=== PATIENT | male | born 1960 | race Caucasian/White ===

== ENCOUNTER 2017-02-11 15:59 | Inpatient (IN) ==
[2017-02-11] MEDS ORDERED: Thiamine (B-1) 100 MG in D5% in Water 50 ML IVPB ONE (16:03)
[2017-02-11] MEDS ORDERED: Folic Acid 1 MG in D5% in Water 50 ML IVPB ONE (16:03)
[2017-02-11] MEDS ORDERED: 0.9 % Sodium Chloride 1,000 ML IVC ONE (16:03)
[2017-02-11] MEDS ORDERED: Vancomycin 1,000 MG in D5% in Water 250 ML IVPB ONE (16:30)
[2017-02-11] MEDS ORDERED: Piperacillin/Tazobactam 4.5 GM in D5% in Water (Mini-Bag+) 100 ML IVPB ONE (16:30)
--- NOTE | 2017-02-11 16:45 | Emergency Department Note ---
Disposition Clinical Impression: Seizure in response to acute event, Hypocalcemia, Hyponatremia, Elevated LFTs, History of hepatitis C, Lactic acidemia Altered mental status, unspecified Qualifiers: Altered mental status type: somnolence Qualified Code(s): R40.0 - Somnolence Sepsis Qualifiers: Sepsis type: sepsis due to unspecified organism Qualified Code(s): A41.9 - Sepsis, unspecified organism Disposition: Admitted As Inpatient Condition: Fair Time of Disposition: 18:30 General Adult HPI - General Chief complaint: ED Seizure Stated complaint: psych, withdrawal, seizure Time Seen by Provider: 02/11/17 16:03 Limitations: no limitations Nursing Notes Reviewed: Yes Vital Signs Reviewed: Yes - History of Present Illness HPI Narrative: Patient is a 56-year-old male brought in by EMS from the [place] secondary to patient being combative and started hitting against head against the wall and then went into a seizure. The patient was given 1 mg Ativan and shipped to [facility]. EMS states vital signs were's normal. EMS states that since Ativan patient's not been combative. And has not had any recurrence of seizure activity. Pain Scale: 0 - Related Data Home Medications Medication Instructions Recorded Confirmed Aspirin 81 mg PO DAILY 02/11/17 02/11/17 Diltiazem HCl [Diltiazem ER] 180 mg PO DAILY 02/11/17 02/11/17 Ergocalciferol (VITAMIN D2) 50,000 unit PO QWEEK 02/11/17 02/11/17 [Vitamin D2] Folic Acid 1 mg PO DAILY 02/11/17 02/11/17 Multivitamin [Multi-Day Vitamins] 1 each PO DAILY 02/11/17 02/11/17 Pyridoxine (B-6) [Vitamin B-6] 50 mg PO DAILY 02/11/17 02/11/17 Quetiapine Fumarate [SEROquel] 150 mg PO HS 02/11/17 02/11/17 Thiamine (B-1) [Vitamin B-1] 100 mg PO DAILY 02/11/17 02/11/17 Allergies Allergy/AdvReac Type Severity Reaction Status Date / Time No Known Allergies Allergy Verified 02/11/17 16:12 Review of Systems: As Per HPI Limitations: ROS unobtainable due to patients medical condition Past Medical History - Past Medical History Attestation: Yes The following information was validated with the patient. Source: patient Medical history: Reports: atrial fibrillation, COPD, other - Social History Smoking Status: Current every day smoker Alcohol use: Reports: heavy, recent Physical Exam Vital Signs Temperature 97.6 F 02/11/17 16:00 Pulse Rate 109 02/11/17 16:00 Respiratory Rate 18 02/11/17 16:00 Blood Pressure 105/75 02/11/17 16:00 O2 Sat by Pulse Oximetry 98 02/11/17 16:00 Temperature 97.6 F 02/11/17 16:00 Pulse Rate 118 02/11/17 17:13 Respiratory Rate 16 02/11/17 18:44 Blood Pressure 102/81 02/11/17 18:44 O2 Sat by Pulse Oximetry 97 02/11/17 17:13 Oxygen Delivery Oxygen Delivery Room Air -General Appearance: Patient is a 56-year-old male who is alert and oriented 3 and in no acute distress. Patient has transient level of awareness, and refuses to cooperate with exam. Patient does allow me to examine him passively of less than 2 heart sounds and lung sounds and abdomen but does not participate otherwise - Head Head exam: atraumatic, normocephalic, normal inspection - Neck Neck exam: Present: normal inspection, full ROM, trachea midline, negative JVD - Chest Chest inspection: Present: Patient has bilateral equal rise and fall of chest wall. Non-tender to palpation. - Respiratory Respiratory exam: Clear to auscultation bilaterally without wheezes rales or rhonchi Cardiovascular Cardiovascular exam: Present: Irregularly irregular heart rate and sounds - Abdominal Exam Abdominal exam: Present: soft, nondistended, Non-Tender light and deep palpation in all quadrants. Bowel sounds normoactive throughout all 4 quadrants. Negative for hyper or hyperresonance. - Extremities Exam Extremities exam: Present: normal inspection, full ROM - Back Exam Back exam: Present: normal inspection, full ROM. Absent: tenderness, CVA tenderness (R), CVA tenderness (L) - Psychiatric Psychiatric exam: Present: normal affect, normal mood - Skin Skin exam: Present: warm, dry, intact, normal color - General Limitations: no limitations General appearance: lethargic Course - Reevaluation(s) Reevaluation #1: Patient lying comfortably right lateral recumbent position with IV in right forearm not complaining of anything at this time appears to be wanting to be left alone Time: 16:18 Reevaluation #2: Patient going to CT Time: 16:45 - Consultations Consultation #1: Patient has been accepted by hospitalist Josefina Chin Time: 16:10 Vital Signs Temperature 97.6 F 02/11/17 16:00 Pulse Rate 109 02/11/17 16:00 Respiratory Rate 18 02/11/17 16:00 Blood Pressure 105/75 02/11/17 16:00 O2 Sat by Pulse Oximetry 98 02/11/17 16:00 Temperature 97.6 F 02/11/17 16:00 Pulse Rate 118 02/11/17 17:13 Respiratory Rate 16 02/11/17 18:44 Blood Pressure 102/81 02/11/17 18:44 O2 Sat by Pulse Oximetry 97 02/11/17 17:13 Oxygen Delivery Oxygen Delivery Room Air Medical Decision Making - MDM Narrative Medical decision making narrative: Altered mental status unknown etiology recent witnessed seizures at the [place] which was treated 1 mg Ativan and transported here to the ED. Patient's suspected to be an alcohol withdrawal secondary to history of alcohol abuse. Patient states last alcohol consumption was this morning but tox screen shows no elevations of ALL The patient concerning for possible CVA, seizure disorder secondary to electrolyte abnormalities, vitamin deficiency of thiamine for Wernicke's encephalopathy, occult withdrawal Patient's vitals stayed stable throughout time in ED. Patient's labs show hypocalcemia hyponatremia. Patient has elevation of AST and ALTs but also has a history of hep C. Patient has an elevation of lactic acid of 2.4. Patient continues to refuse to be cooperative but is not combative. Imaging does not show any hemorrhage or acute intracranial abnormality. Patient has tachycardia, elevated lactate and altered mental state, or source of infection. Patient was placed on Jorje and Zosyn to cover for possible source of infection. Blood cultures were drawn before antibiotics given Plan is to admit patient for further workup and treatment for current abnormalities and labs. Recommend medical management with consultation and evaluation by neurology possible EEG, and psych evaluation as well. Patient has been accepted by hospitalist Josefina Chin [employer]. - Lab Data Lab results reviewed: Yes I reviewed the patient's lab results. Lab results narrative: Short CBC 02/11/17 Range/Units 16:31 WBC 8.3 (4.3-11.1) K/mcL Hgb 15.1 (12.9-16.9) g/dL Hct 43.1 (37.5-50.1) % Plt Count 132 L (140-400) K/mcL Neutrophils # 5.5 (1.6-8.9) K/mcL BMP 02/11/17 Range/Units 16:31 Sodium 130 L (136-145) mEq/L Potassium 3.5 (3.5-4.5) mEq/L Chloride 97 L (98-109) mEq/L Carbon Dioxide 26 (19-29) mEq/L BUN 12 (8-26) mg/dL Creatinine 0.81 (0.72-1.25) mg/dL Glucose 100 H (70-99) mg/dL Calcium 8.5 L (8.6-10.8) mg/dL Liver Function 02/11/17 Range/Units 16:31 Total Bilirubin 1.8 H (0.2-1.2) mg/dL AST 82 H (5-34) Units/L ALT 118 H (0-55) Units/L Alkaline Phosphatase 126 (38-126) Units/L Albumin 2.7 L (3.5-5.0) g/dL Result diagrams: 02/11/17 16:31 02/11/17 16:31 Lab Results 02/11/17 02/11/17 02/11/17 Range/Units 16:31 16:31 16:31 WBC 8.3 (4.3-11.1) K/mcL RBC 4.57 (4.19-5.50) M/mcL Hgb 15.1 (12.9-16.9) g/dL Hct 43.1 (37.5-50.1) % MCV 94.3 (83.0-100.0) fL MCH 33.0 (28.0-33.3) pg MCHC 35.0 (31.6-35.5) g/dL RDW 13.2 (11.5-14.5) % Plt Count 132 L (140-400) K/mcL MPV 11.3 (9.4-12.4) fL Immature Gran % 0.4 (0-4) % Seg Neutrophils % 65.9 % Lymphocytes % 15.8 % Monocytes % 17.6 % Eosinophils % 0.1 % Basophils % 0.2 % Neutrophils # 5.5 (1.6-8.9) K/mcL Lymphocytes # 1.3 (0.6-4.6) K/mcL Monocytes # 1.5 H (0.0-1.3) K/mcL Eosinophils # 0.0 (0.0-0.6) K/mcL Basophils # 0.0 (0.0-0.2) K/mcL Nucleated RBCs/100 WBC 0.5 H (0) /100 WBC PT 10.8 (9.4-12.1) Seconds INR 1.0 Sodium 130 L (136-145) mEq/L Potassium 3.5 (3.5-4.5) mEq/L Chloride 97 L (98-109) mEq/L Carbon Dioxide 26 (19-29) mEq/L BUN 12 (8-26) mg/dL Creatinine 0.81 (0.72-1.25) mg/dL Est GFR ( Amer) > 60 (> 60) Est GFR (Non-Af Amer) > 60 (> 60) BUN/Creatinine Ratio 15 (6-26) Glucose 100 H (70-99) mg/dL Calculated Osmolality 270 L (280-300) Lactic Acid (0.5-2.2) mmol/L Calcium 8.5 L (8.6-10.8) mg/dL Ionized Calcium (1.15-1.35) mmol/L Phosphorus 2.2 L (2.3-4.7) mg/dL Magnesium 1.9 (1.6-2.6) mg/dL Total Bilirubin 1.8 H (0.2-1.2) mg/dL AST 82 H (5-34) Units/L ALT 118 H (0-55) Units/L Alkaline Phosphatase 126 (38-126) Units/L Serum Total Protein 6.7 (6.0-8.3) g/dL Albumin 2.7 L (3.5-5.0) g/dL Globulin 4.0 H (2.4-3.5) g/dL Albumin/Globulin Ratio 0.7 L (1.1-2.2) Lipase 72 (8-78) Units/L Salicylates < 5.0 L (15-30) mg/dL Acetaminophen < 1.0 L (10-30) mcg/mL Ethyl Alcohol < 10 (0-10) mg/dL 02/11/17 02/11/17 Range/Units 17:23 18:28 WBC (4.3-11.1) K/mcL RBC (4.19-5.50) M/mcL Hgb (12.9-16.9) g/dL Hct (37.5-50.1) % MCV (83.0-100.0) fL MCH (28.0-33.3) pg MCHC (31.6-35.5) g/dL RDW (11.5-14.5) % Plt Count (140-400) K/mcL MPV (9.4-12.4) fL Immature Gran % (0-4) % Seg Neutrophils % % Lymphocytes % % Monocytes % % Eosinophils % % Basophils % % Neutrophils # (1.6-8.9) K/mcL Lymphocytes # (0.6-4.6) K/mcL Monocytes # (0.0-1.3) K/mcL Eosinophils # (0.0-0.6) K/mcL Basophils # (0.0-0.2) K/mcL Nucleated RBCs/100 WBC (0) /100 WBC PT (9.4-12.1) Seconds INR Sodium (136-145) mEq/L Potassium (3.5-4.5) mEq/L Chloride (98-109) mEq/L Carbon Dioxide (19-29) mEq/L BUN (8-26) mg/dL Creatinine (0.72-1.25) mg/dL Est GFR ( Amer) (> 60) Est GFR (Non-Af Amer) (> 60) BUN/Creatinine Ratio (6-26) Glucose (70-99) mg/dL Calculated Osmolality (280-300) Lactic Acid 2.4 H (0.5-2.2) mmol/L Calcium (8.6-10.8) mg/dL Ionized Calcium 1.03 L (1.15-1.35) mmol/L Phosphorus (2.3-4.7) mg/dL Magnesium (1.6-2.6) mg/dL Total Bilirubin (0.2-1.2) mg/dL AST (5-34) Units/L ALT (0-55) Units/L Alkaline Phosphatase (38-126) Units/L Serum Total Protein (6.0-8.3) g/dL Albumin (3.5-5.0) g/dL Globulin (2.4-3.5) g/dL Albumin/Globulin Ratio (1.1-2.2) Lipase (8-78) Units/L Salicylates (15-30) mg/dL Acetaminophen (10-30) mcg/mL Ethyl Alcohol (0-10) mg/dL - Radiology Data Radiology results reviewed: Yes I reviewed the patient's radiology results. Chest X-Ray 02/11/17 16:03 IMPRESSION: No acute cardiopulmonary process. D/ / Ricardo Tinoco MD / Ricardo Tinoco MD Interpreting Provider: Ricardo Tinoco MD Head CT 02/11/17 16:10 IMPRESSION: No acute intracranial abnormality. Chronic left maxillary sinusitis. D/ / 02/11/2017 17:53:17 Iker Jaime MD / eva Interpreting Provider: Iker Jaime MD
[2017-02-11 17:05] LABS: Basophils % 0.2 %; Eosinophils % 0.1 %; Hematocrit 43.1 % (37.5-50.1); Hemoglobin 15.1 g/dL (12.9-16.9); Immature Granulocytes % 0.4 % (0-4); Lymphocytes # 1.3 K/mcL (0.6-4.6); Lymphocytes % 15.8 %; Mean Corpuscular Volume 94.3 fL (83.0-100.0); Mean Platelet Volume 11.3 fL (9.4-12.4); Monocytes # 1.5 K/mcL (0.0-1.3); Monocytes % 17.6 %; Neutrophils # 5.5 K/mcL (1.6-8.9); Nucleated Red Blood Cells 0.5 /100 WBC (0); Platelet Count 132 K/mcL (140-400); Red Blood Count 4.57 M/mcL (4.19-5.50); Red Cell Distribution Width 13.2 % (11.5-14.5); Segmented Neutrophils % 65.9 %
[2017-02-11 17:07] LABS: Prothrombin Time 10.8 Seconds (9.4-12.1)
[2017-02-11] MEDS: 0.9 % Sodium Chloride 1,000 ML IVC SCH ×3 (17:17→23:13)
[2017-02-11 17:20] LABS: Alanine Aminotransferase 118 Units/L (0-55); Albumin 2.7 g/dL (3.5-5.0); Albumin/Globulin Ratio 0.7 (1.1-2.2); Alkaline Phosphatase 126 Units/L (38-126); Aspartate Amino Transferase 82 Units/L (5-34); BUN/Creatinine Ratio 15 (6-26); Bilirubin,Total 1.8 mg/dL (0.2-1.2); Blood Urea Nitrogen 12 mg/dL (8-26); Calcium 8.5 mg/dL (8.6-10.8); Carbon Dioxide 26 mEq/L (19-29); Chloride 97 mEq/L (98-109); Glucose 100 mg/dL (70-99); Lipase 72 Units/L (8-78); Magnesium 1.9 mg/dL (1.6-2.6); Osmolality,Calculated 270 (280-300); Phosphorous 2.2 mg/dL (2.3-4.7); Potassium 3.5 mEq/L (3.5-4.5); Sodium 130 mEq/L (136-145); Total Protein 6.7 g/dL (6.0-8.3); eGFR For African Americans > 60 (> 60); eGFR For Non-African Americans > 60 (> 60)
[2017-02-11 17:29] LABS: Ethanol < 10 mg/dL (0-10)
[2017-02-11 18:17] LABS: Acetaminophen < 1.0 mcg/mL (10-30); Salicylate < 5.0 mg/dL (15-30)
[2017-02-11] MEDS ORDERED: Naloxone 0.4 MG/ML INJ IVP PRN (20:24)
[2017-02-11] MEDS ORDERED: diazePAM 10 MG/2 ML SYRINGE IVP PRN (20:28)
--- NOTE | 2017-02-11 20:34 | Internal Med History&Physical ---
Date of Encounter: 02/11/17 Time of Encounter: 20:30 Assessment and Plan (1) Seizure after head injury Current visit: Yes Status: Acute unsure. Multi-factorial - could be hyponatremia, alcohol ? CT head wnl. To observe inpatient with seizure precautions (2) Hyponatremia Current visit: Yes Status: Acute correct with 0.9 NS IVF at 100cc/hr. Could be component of beer potomania if alcoholism is active (3) Self-harming behavior Current visit: Yes Status: Acute sitter, psych eval when mental status more cooperative (4) Alcoholism Current visit: Yes Status: Acute close monitoring with [facility] Internal Medicine - H&P: HPI Chief complaint: Hitting head against wall, seizure History of present illness: Mr. Mercado is a 56 year old male who is unable to provide a history is admitted for 1)hitting head against wall with subsequent 2) seizure. Seen patient at bedside, patient comfortably at rest but is unable to provide a history. Per ED report, he came from the [place] and was apparently hitting his head against the wall , unsure whether there was a component of self harm. Shortly after, he developed a seizure episode and was given ativan. There was some suspicion for component of alcoholism associated presentation ? Past Med Surg Social Fam HX - Past Medical History Medical history: atrial fibrillation, COPD, other - Past Surgical History Surgical History: no surgical history (No past surgical history reported) - Social History Smoking Status: Current every day smoker Alcohol use: heavy, recent - Additional Family History Additional family history: No family history reported by patient Internal Medicine - H&P: Meds Aspirin 81 mg PO DAILY 02/11/17 [History] Diltiazem HCl [Diltiazem ER] 180 mg PO DAILY 02/11/17 [History] Ergocalciferol (VITAMIN D2) [Vitamin D2] 50,000 unit PO QWEEK 02/11/17 [History] Folic Acid 1 mg PO DAILY 02/11/17 [History] Multivitamin [Multi-Day Vitamins] 1 each PO DAILY 02/11/17 [History] Pyridoxine (B-6) [Vitamin B-6] 50 mg PO DAILY 02/11/17 [History] Quetiapine Fumarate [SEROquel] 150 mg PO HS 02/11/17 [History] Thiamine (B-1) [Vitamin B-1] 100 mg PO DAILY 02/11/17 [History] Allergies No Known Allergies Allergy (Verified 02/11/17 16:12) All Systems PM: A 10-system review of systems was performed and is negative for pertinent findings except as documented above in the HPI. Review of systems: ROS 14 point review of systems reviewed as best as possible given presentation. Pertinent positive or negative as per HPI or otherwise reviewed as negative - Constitutional Vitals: Temp Pulse Resp BP Pulse Ox 97.6 F 118 16 102/81 97 02/11/17 16:00 02/11/17 17:13 02/11/17 18:44 02/11/17 18:44 02/11/17 17:13 Exam: General - awake but not communicative Psych - Appropriate affect/speech. No agitation Eyes - NANO. Eye lids intact. No scleral icterus ENT - Oral mucosa pink, dentition intact. External ear clear/dry/intact. No thyromegaly Lymphatics - No cervical/inguinal lympadenopathy Neuro - unable to perform due to patient not cooperative Heart - Sinus. RRR. S1 and S2 present. No added HS/murmurs appreciated. No elevated JVD appreciated. No calf swellings/erythema Lung - Adequate air entry b/l, No crackes/wheezes appreciated GI - Soft, non-tender. No hepatosplenomegaly/ascities. BS+ - No CVA/suprapubic tenderness or palpable bladder distension Skin - Intact. No rash/petechiae/ecchymosis. Warm extremities MSK - Joints with normal ROM. No joint swellings Internal Med - H&P Results - Labs CBC & Chem 7: 02/11/17 16:31 02/11/17 16:31
--- NOTE | 2017-02-11 21:44 | Emergency Department Note ---
START Narrative - START START: I examined this patient and my medical decision-making was reviewed with the Resident Physician. I agree with the documented findings, disposition and treatment plan as described except to the extent set forth below. In summary 56 -year-old male who presents with concern for alcohol withdrawal seizure. He was noted to be disheveled and unable to care for himself per the social work case manager that found him at home. He was not able to angulate. He did have a tonic- clonic seizure and was given abortive therapy with lorazepam. Ultimately he was sent here for further evaluation. He was mildly hypotensive and tachycardic on arrival. He met SIRS criteria. He was started on broad- spectrum antibiotics. A 30 mL per kilogram fluid bolus was given. Plan to admit on seizure precautions. There is no evidence of infection on chest x-ray or urinalysis. The patient had improvement of vital signs with IV fluid resuscitation. Time in as well as multivitamin were provided. The patient be admitted to stepdown for further evaluation of alcohol withdrawal induced seizure as well as possible systemic inflammatory response syndrome. Greater than 35 minutes of critical care time was spent resuscitating this acutely ill male suffering from alcohol withdrawal seizure as well as sepsis. His is excluding billable procedures.
[2017-02-12 04:56] LABS: Bilirubin,Urine Small (Negative); Blood,Urine Negative (Negative); Clarity,Urine Clear (Clear); Color,Urine Dark Yellow (Yellow); Glucose,Urine (UA) Normal (Normal); Ketones,Urine Trace mg/dL (Negative); Leukocyte Esterase,Urine Negative (Negative); Nitrite,Urine Negative (Negative); Protein,Urine Negative (Neg-Trace); Specific Gravity,Urine 1.022 (1.010-1.025); Urobilinogen,Urine Normal (Normal)
[2017-02-12 05:03] LABS: Amphetamine Screen,Urine Negative ng/mL (Cutoff=1000); Barbiturate Screen,Urine Negative ng/mL (Cutoff=200); Benzodiazepines Screen,Urine Negative ng/mL (Cutoff=200); Cannabinoid Screen,Urine Positive ng/mL (Cutoff = 50); Cocaine Screen,Urine Negative ng/mL (Cutoff= 300); Opiate Screen,Urine Negative ng/mL (Cutoff=300); Phencyclidine Screen,Urine Negative ng/mL (Cutoff=25)
[2017-02-12 05:12] LABS: Hematocrit 37.4 % (37.5-50.1); Mean Corpuscular HGB Conc 34.5 g/dL (31.6-35.5); Mean Corpuscular Hemoglobin 32.7 pg (28.0-33.3); Mean Corpuscular Volume 94.9 fL (83.0-100.0); Mean Platelet Volume 11.8 fL (9.4-12.4); Platelet Count 133 K/mcL (140-400); Red Blood Count 3.94 M/mcL (4.19-5.50); Red Cell Distribution Width 13.2 % (11.5-14.5)
[2017-02-12 05:13] LABS: Alanine Aminotransferase 101 Units/L (0-55); Albumin 2.4 g/dL (3.5-5.0); Albumin/Globulin Ratio 0.7 (1.1-2.2); Alkaline Phosphatase 96 Units/L (38-126); Aspartate Amino Transferase 85 Units/L (5-34); BUN/Creatinine Ratio 13 (6-26); Bilirubin,Total 1.5 mg/dL (0.2-1.2); Blood Urea Nitrogen 9 mg/dL (8-26); Calcium 7.9 mg/dL (8.6-10.8); Carbon Dioxide 19 mEq/L (19-29); Chloride 107 mEq/L (98-109); Globulin 3.4 g/dL (2.4-3.5); Glucose 84 mg/dL (70-99); Osmolality,Calculated 274 (280-300); Potassium 3.3 mEq/L (3.5-4.5); Sodium 133 mEq/L (136-145); Total Protein 5.8 g/dL (6.0-8.3); eGFR For African Americans > 60 (> 60); eGFR For Non-African Americans > 60 (> 60)
[2017-02-12 05:25] LABS: Hemoglobin 12.9 g/dL (12.9-16.9)
[2017-02-12] MEDS ORDERED: *HR* Enoxaparin 40 MG/0.4 ML SYRINGE SQ SCH (06:00)
[2017-02-12 07:56] VITALS: BP 127/89
[2017-02-12] MEDS ORDERED: Aspirin 81 MG TAB.CHEW PO SCH (09:00)
[2017-02-12] MEDS ORDERED: Vitamin B Complex/Vit C/Vit E 1 EACH TABLET PO SCH (09:00)
[2017-02-12] MEDS ORDERED: Thiamine (B-1) 100 MG TABLET PO SCH (09:00)
[2017-02-12] MEDS ORDERED: Diltiazem CD (24hr) 180 MG CAPSULE PO SCH (09:00)
[2017-02-12] MEDS ORDERED: Folic Acid 1 MG TABLET PO SCH (09:00)
[2017-02-12] MEDS ORDERED: Nicotine 14 MG PATCH.TD24 TD SCH (09:00)
[2017-02-12] MEDS: 0.9 % Sodium Chloride 1,000 ML IVC SCH ×2 (09:07→16:56)
--- NOTE | 2017-02-12 14:33 | Consult Note ---
Date of Encounter: 02/12/17 Time of Encounter: 13:50 Assessment & Recommendation (1) Alcoholism Current visit: Yes Status: Acute (2) Alcohol abuse with alcohol-induced mood disorder Current visit: Yes Status: Acute History of Present Illness Requesting Physician: Emely Barth Reason for consult: evaluation for self harm History of present illness: Mr. Mercado is a 56 year old male evaluated today for self harm ideation. chart reviewed. He has h/o depression and anxiety and insomnia as per him and been treated , does not know name of his medicine. he is still confused at times but able to give history. Mr. Dong was bought in after he had seizure , he has been drinking Alcohol 12 packs of beer on daily basis states some are heavy days others not, he agreed he was drinking prior to his seizure, also states he feels dizzy and has had multiple falls. he gives h/o seizures in past , he has other medical problems, he has no support and lives by himself with his pets. he denies any other drugs , no cig. but dips. he denies any depression at present , he is anxious about his medical condition , denies any psychosis, no manic episode, denies current suicidal ideation , no thoughts of hurting others. past psych history of depression , anxiety and self harm by cutting self 11 years ago , he is on seroquel , he has no insight regarding his alcohol use. a/p mood disorder sec. to alcohol alcohol use disorder. alcohol withdrawl r/o DT. will benefit from naltrexone. continue seroquel. patient need inpatient rehab and counselling. at present not in imenent danger to self/others. CC: Emely Barth Past Med Surg Social Fam HX - Past Medical History Medical history: atrial fibrillation, COPD, other - Past Psychiatric History Psychiatric history: Reports: anxiety, depression Family psychiatric history: Unknown Family History of Suicide: Unknown - Past Surgical History Surgical History: no surgical history - Social History Smoking Status: Current every day smoker Alcohol use: heavy, recent Drug use: marijuana Medications & Allergies Aspirin 81 mg PO DAILY 02/11/17 [History] Diltiazem HCl [Diltiazem ER] 180 mg PO DAILY 02/11/17 [History] Ergocalciferol (VITAMIN D2) [Vitamin D2] 50,000 unit PO QWEEK 02/11/17 [History] Folic Acid 1 mg PO DAILY 02/11/17 [History] Multivitamin [Multi-Day Vitamins] 1 each PO DAILY 02/11/17 [History] Pyridoxine (B-6) [Vitamin B-6] 50 mg PO DAILY 02/11/17 [History] Quetiapine Fumarate [SEROquel] 150 mg PO HS 02/11/17 [History] Thiamine (B-1) [Vitamin B-1] 100 mg PO DAILY 02/11/17 [History] Allergies No Known Allergies Allergy (Verified 02/11/17 16:12) Review of Systems Psychiatric: Reports: confusion Mental Status Exam Patient orientation: Yes Person, Yes Time, Yes Place Level of alertness: Alert Patient appearance: Unkempt Behavior: cooperative Psychomotor activity: Normal Eye contact: Maintains Eye Contact Mood description: Anxious Affect description: congruent with mood Speech pattern: Normal rate Speech volume: Normal Thought content: Yes Preoccupation Attention span: Unable to Sustain Attention Memory description: Recent Impaired Patient reliability: Questionable Historian Intelligence estimate: Average Judgment: Fair Insight: Minimal Results - Vital Signs Vital signs: Temp Pulse Resp BP Pulse Ox 98.2 F 76 14 127/89 100 02/12/17 07:51 02/12/17 07:51 02/12/17 07:51 02/12/17 07:51 02/12/17 09:00 - Drug Levels and Toxicology Drug Levels and Toxicology: Drug Levels and Toxicity 02/12/17 04:20 Urine Opiates Screen Negative Ur Barbiturates Screen Negative Ur Phencyclidine Scrn Negative Ur Amphetamines Screen Negative U Benzodiazepines Scrn Negative Urine Cocaine Screen Negative U Marijuana (THC) Screen Positive H - Labs Labs: Laboratory Last Values WBC 7.9 K/mcL (4.3-11.1) 02/12/17 04:09 RBC 3.94 M/mcL (4.19-5.50) L 02/12/17 04:09 Hgb 12.9 g/dL (12.9-16.9) D 02/12/17 04:09 Hct 37.4 % (37.5-50.1) L 02/12/17 04:09 MCV 94.9 fL (83.0-100.0) 02/12/17 04:09 MCH 32.7 pg (28.0-33.3) 02/12/17 04:09 MCHC 34.5 g/dL (31.6-35.5) 02/12/17 04:09 RDW 13.2 % (11.5-14.5) 02/12/17 04:09 Plt Count 133 K/mcL (140-400) L 02/12/17 04:09 MPV 11.8 fL (9.4-12.4) 02/12/17 04:09 Immature Gran % 0.4 % (0-4) 02/11/17 16:31 Seg Neutrophils % 65.9 % 02/11/17 16:31 Lymphocytes % 15.8 % 02/11/17 16:31 Monocytes % 17.6 % 02/11/17 16:31 Eosinophils % 0.1 % 02/11/17 16:31 Basophils % 0.2 % 02/11/17 16:31 Neutrophils # 5.5 K/mcL (1.6-8.9) 02/11/17 16:31 Lymphocytes # 1.3 K/mcL (0.6-4.6) 02/11/17 16:31 Monocytes # 1.5 K/mcL (0.0-1.3) H 02/11/17 16:31 Eosinophils # 0.0 K/mcL (0.0-0.6) 02/11/17 16:31 Basophils # 0.0 K/mcL (0.0-0.2) 02/11/17 16:31 Nucleated RBCs/100 WBC 0.5 /100 WBC (0) H 02/11/17 16:31 PT 10.8 Seconds (9.4-12.1) 02/11/17 16:31 INR 1.0 02/11/17 16:31 Sodium 133 mEq/L (136-145) L 02/12/17 04:09 Potassium 3.3 mEq/L (3.5-4.5) L 02/12/17 04:09 Chloride 107 mEq/L (98-109) 02/12/17 04:09 Carbon Dioxide 19 mEq/L (19-29) 02/12/17 04:09 BUN 9 mg/dL (8-26) 02/12/17 04:09 Creatinine 0.68 mg/dL (0.72-1.25) L 02/12/17 04:09 Est GFR ( Amer) > 60 (> 60) 02/12/17 04:09 Est GFR (Non-Af Amer) > 60 (> 60) 02/12/17 04:09 BUN/Creatinine Ratio 13 (6-26) 02/12/17 04:09 Glucose 84 mg/dL (70-99) 02/12/17 04:09 Calculated Osmolality 274 (280-300) L 02/12/17 04:09 Lactic Acid 2.4 mmol/L (0.5-2.2) H 02/11/17 17:23 Calcium 7.9 mg/dL (8.6-10.8) L 02/12/17 04:09 Ionized Calcium 1.03 mmol/L (1.15-1.35) L 02/11/17 18:28 Phosphorus 2.2 mg/dL (2.3-4.7) L 02/11/17 16:31 Magnesium 1.9 mg/dL (1.6-2.6) 02/11/17 16:31 Total Bilirubin 1.5 mg/dL (0.2-1.2) H 02/12/17 04:09 AST 85 Units/L (5-34) H 02/12/17 04:09 ALT 101 Units/L (0-55) H 02/12/17 04:09 Alkaline Phosphatase 96 Units/L (38-126) 02/12/17 04:09 B-Natriuretic Peptide 564 pg/mL (0-100) H 02/12/17 04:09 Serum Total Protein 5.8 g/dL (6.0-8.3) L 02/12/17 04:09 Albumin 2.4 g/dL (3.5-5.0) L 02/12/17 04:09 Globulin 3.4 g/dL (2.4-3.5) 02/12/17 04:09 Albumin/Globulin Ratio 0.7 (1.1-2.2) L 02/12/17 04:09 Lipase 72 Units/L (8-78) 02/11/17 16:31 Urine Color Dark Yellow (Yellow) 02/12/17 04:20 Urine Clarity Clear (Clear) 02/12/17 04:20 Urine pH 6.0 pH Units (5.0-8.0) 02/12/17 04:20 Ur Specific [place] 1.022 (1.010-1.025) 02/12/17 04:20 Urine Protein Negative mg/dL (Neg-Trace) 02/12/17 04:20 Urine Glucose (UA) Normal mg/dL (Normal) 02/12/17 04:20 Urine Ketones Trace mg/dL (Negative) H 02/12/17 04:20 Urine Blood Negative (Negative) 02/12/17 04:20 Urine Nitrite Negative (Negative) 02/12/17 04:20 Urine Bilirubin Small (Negative) H 02/12/17 04:20 Urine Urobilinogen Normal mg/dL (Normal) 02/12/17 04:20 Ur Leukocyte Esterase Negative (Negative) 02/12/17 04:20 Salicylates < 5.0 mg/dL (15-30) L 02/11/17 16:31 Urine Opiates Screen Negative ng/mL (Tmekuf=348) 02/12/17 04:20 Acetaminophen < 1.0 mcg/mL (10-30) L 02/11/17 16:31 Ur Barbiturates Screen Negative ng/mL (Tkolmx=623) 02/12/17 04:20 Ur Phencyclidine Scrn Negative ng/mL (Cutoff=25) 02/12/17 04:20 Ur Amphetamines Screen Negative ng/mL (Ksolbz=7449) 02/12/17 04:20 U Benzodiazepines Scrn Negative ng/mL (Vuverd=514) 02/12/17 04:20 Urine Cocaine Screen Negative ng/mL (Cutoff= 300) 02/12/17 04:20 U Marijuana (THC) Screen Positive ng/mL (Cutoff = 50) H 02/12/17 04:20 Ethyl Alcohol < 10 mg/dL (0-10) 02/11/17 16:31 Consult Discharge Plan - Plan Referrals: NONE,PCP [Primary Care Provider] -
--- NOTE | 2017-02-12 19:00 | Discharge Summary ---
Date of Encounter: 02/12/17 Time of Encounter: 18:15 - Discharge Diagnosis (1) Altered mental status, unspecified Priority: Primary Status: Resolved (2) Seizure after head injury Priority: Primary Status: Resolved Comments: Patient stating he has had seizures in the past which he attributed to from lack of alcohol. No seizure-like activity while admitted. Patient said he has no desire to stop drinking. (3) Hyponatremia Priority: Primary Status: Acute Comments: Improve all admitted with IV fluids. Likely secondary to beer potomania (4) Self-harming behavior Priority: Primary Status: Resolved (5) Alcoholism Priority: Secondary Status: Chronic (6) Elevated LFTs Priority: Secondary Status: Chronic Comments: Remained stable while admitted, able to tolerate a regular diet. Follow-up outpatient (7) History of hepatitis C Priority: Secondary Status: Chronic (8) Alcohol abuse with alcohol-induced mood disorder Priority: Secondary Status: Chronic - Discharge Medications Home Medications: Aspirin 81 mg PO DAILY 02/11/17 [History] Diltiazem HCl [Diltiazem ER] 180 mg PO DAILY 02/11/17 [History] Ergocalciferol (VITAMIN D2) [Vitamin D2] 50,000 unit PO QWEEK 02/11/17 [History] Folic Acid 1 mg PO DAILY 02/11/17 [History] Multivitamin [Multi-Day Vitamins] 1 each PO DAILY 02/11/17 [History] Pyridoxine (B-6) [Vitamin B-6] 50 mg PO DAILY 02/11/17 [History] Quetiapine Fumarate [Seroquel] 150 mg PO HS 02/11/17 [History] Thiamine (B-1) [Vitamin B-1] 100 mg PO DAILY 02/11/17 [History] Allergies/Adverse Reactions: Allergies No Known Allergies Allergy (Verified 02/11/17 16:12) Procedures/tests Complete & Pending: Procedures Performed prior 72 hours Category Date Time Status ECG 12 lead ECG [ECG] Routine Y 02/11/17 16:08 Completed ECG 12 lead ECG [ECG] Routine Y 02/12/17 07:52 Completed EKG [ECG 12 lead ECG] [ECG] AM 0600 Y 02/12/17 06:00 Completed Date of admission: 02/11/17 20:24 Primary care physician: PCP NONE Consults: 02/11/17 20:27 Consult to Psychiatry [CONS] Routine Consulting Provider: Siena Chavez Reason for Consult: eval for self harm Call Completed: No 02/12/17 11:37 Consult to Nutrition Assistant [CONS] Routine Reason for SW Consult: ETOH withdrawl Discharging clinician: Emely Fernando Anticipated date of discharge: 02/12/17 (cleared per psych) - Patient Status Disposition: Home, Self-Care Condition: Fair Functional capacity at discharge: independent ambulation Overall status at discharge: patient is back to baseline - Discharge Instructions Follow Up With: NONE,PCP [Primary Care Provider] - Additional Instructions: Follow-up with primary care provider within one to 2 weeks - Diet and Activity Activity: increase activity as tolerated Diet: regular diet Hospital course: Mr. Mercado is a 56 year old male with past medical history of atrial fibrillation, COPD, tobacco abuse, heavy alcohol abuse. Patient presented to the [facility] department from the [facility] after he hit his head against the wall and a supposedly attempt to harm himself. Shortly after this, he developed seizure- like episode and was given Ativan. Upon arrival, patient was unable to give history initially. Chest x-ray negative. Head CT negative for acute processes. Tox screen positive for marijuana. Urinalysis negative. Mild transaminitis noted. Mild hyponatremia noted. Patient was admitted to the hospitalist service for further evaluation and management. He allegedly made suicidal and homicidal threats prior to his presentation at the [facility], so he was placed on suicide precautions during this admission and psychiatry was brought on board. Patient was admitted and observed overnight, and had returned to his baseline. LFTs stable. He was alert and oriented 3 and no longer had suicidal or homicidal ideations. He was seen and evaluated by psychiatry who recommended rehabilitation. Patient freely admitted that he had no desire to stop drinking or smoking. No seizure-like activity during this admission. No signs of active alcohol withdrawal during this admission. Patient was able to tolerate a regular diet. He again declined suicidal or homicidal ideations at time of discharge. He was discharged home in stable condition with close outpatient follow-up recommended. Of note, patient is already on supplementation for vitamin D, folic acid, B6, and B1. ITS Impressions Chest X-Ray 02/11/17 16:03 IMPRESSION: No acute cardiopulmonary process. D/ / Ricardo Tinoco MD / Ricardo Tinoco MD Interpreting Provider: Ricardo Tinoco MD Head CT 02/11/17 16:10 IMPRESSION: No acute intracranial abnormality. Chronic left maxillary sinusitis. D/ / 02/11/2017 17:53:17 Iker Jaime MD / eva Interpreting Provider: Iker Jaime MD - Time Spent with Patient Total time spent providing and/or coordinating discharge services: - Constitutional Vitals: Temp Pulse Resp BP Pulse Ox 98.2 F 76 14 127/89 100 02/12/17 07:51 02/12/17 07:51 02/12/17 07:51 02/12/17 07:51 02/12/17 09:00 General appearance: Present: A&O X 3, pleasant, no acute distress, answers questions appropriately - Head Head exam: Present: atraumatic, normocephalic - Eye Eye exam: Present: PERRL, conjuntiva pink, sclera anicteric Pupils: Present: PERRL - Neck Neck exam general surgery: Present: supple, trachea midline. Absent: lymphadenopathy - Respiratory Respiratory exam: Present: decreased breath sounds. Absent: accessory muscle use, rales, respiratory distress, rhonchi, wheezes - Cardiovascular Cardiovascular exam: Present: RRR, +S1, +S2. Absent: diastolic murmur, gallop, rubs, systolic murmur - GI/Abdominal GI/Abdominal exam: Present: normal bowel sounds, soft, no peritoneal signs. Absent: distended, tenderness - Extremities Exam Extremities exam: Present: warm, radial pulses palpable and symmetrical. Absent : calf tenderness, cyanotic, pedal edema - Neurological Exam Neurological exam: Present: alert, CN II-XII intact, normal gait, oriented X3, no focal deficits, strengths equal and symetr throughout. Absent: pronater drift, facial droop, speech deficit - Psychiatric Psychiatric exam: Absent: homicidal ideation, suicidal ideation - Skin Skin exam: Present: dry, intact, normal color, warm
--- NOTE | 2017-02-12 20:18 | Electrocardiograph Report ---
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
--- NOTE | 2017-02-12 20:36 | Electrocardiograph Report ---
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
--- NOTE | 2017-02-12 20:37 | Electrocardiograph Report ---
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
== END 2017-02-12 20:45 | disposition home or self-care (01) | DRG 897 ==
LOC: EMEROO 15:59 → 3BNU 15:59
PROVIDERS: ADMIT Nurse Practitioner Family; ATTEND Nurse Practitioner Family

== ENCOUNTER 2021-01-19 21:31 | Observation (INO) ==
[2021-01-19 22:44] LABS: Basophils # 0.1 K/mcL (0.0-0.2); Basophils % 0.5 %; Eosinophils # 0.1 K/mcL (0.0-0.6); Eosinophils % 1.1 %; Hematocrit 43.5 % (37.5-50.1); Hemoglobin 14.6 g/dL (12.9-16.9); Immature Granulocytes % 0.4 % (0-4); Lymphocytes # 5.5 K/mcL (0.6-4.6); Lymphocytes % 49.4 %; Mean Corpuscular HGB Conc 33.6 g/dL (31.6-35.5); Mean Corpuscular Hemoglobin 32.6 pg (28.0-33.3); Mean Corpuscular Volume 97.1 fL (83.0-100.0); Mean Platelet Volume 10.9 fL (9.4-12.4); Monocytes # 1.4 K/mcL (0.0-1.3); Monocytes % 12.3 %; Platelet Count 247 K/mcL (140-400); Red Blood Count 4.48 M/mcL (4.19-5.50); Red Cell Distribution Width 14.6 % (11.5-14.5); Segmented Neutrophils % 36.3 %; White Blood Count 11.1 K/mcL (4.3-11.1)
[2021-01-19] MEDS: DilTIAZem 50 MG/50 ML IV.SOLN IVC SCH (22:49)
[2021-01-19 22:54] LABS: INR 0.9; Prothrombin Time 10.5 Seconds (9.4-12.1)
[2021-01-19 22:57] LABS: Activated Partial Thrombo Time 29.9 Seconds (26.0-36.0)
[2021-01-19 23:05] LABS: BUN/Creatinine Ratio 16 (6-26); Blood Urea Nitrogen 17 mg/dL (6-20); Calcium 9.8 mg/dL (8.6-10.3); Carbon Dioxide 29 mEq/L (23-29); Chloride 103 mEq/L (98-107); Ethanol < 10 mg/dL (Less than 10); Glucose 98 mg/dL (70-105); Osmolality,Calculated 292 (280-300); Sodium 140 mEq/L (136-145); eGFR For African Americans > 60 (> 60); eGFR For Non-African Americans > 60 (> 60)
[2021-01-19 23:07] LABS: Troponin I < 0.03 ng/mL (< 0.04)
[2021-01-19] MEDS ORDERED: 0.9 % Sodium Chloride 1,000 ML IVC ONE (23:14)
[2021-01-19] MEDS ORDERED: *HR* Heparin 5,000 UNIT/ML VIAL IVP PRN ×2 (23:14)
[2021-01-19] MEDS ORDERED: *HR* Heparin 5,000 UNIT/ML VIAL IVP ONE (23:14)
[2021-01-19 23:17] LABS: Platelet Estimate Normal (Normal); Reactive Lymphocytes Present (Not Present)
[2021-01-19 23:23] LABS: Bilirubin,Urine Negative (Negative); Blood,Urine Negative (Negative); Clarity,Urine Clear (Clear); Color,Urine Colorless (Yellow); Glucose,Urine (UA) Normal (Normal); Ketones,Urine Negative (Negative); Leukocyte Esterase,Urine Negative (Negative); Nitrite,Urine Negative (Negative); PH,Urine 5.5 pH Units (5.0-8.0); Protein,Urine Negative (Neg-Trace); Specific Gravity,Urine 1.009 (1.010-1.025); Urobilinogen,Urine Normal (Normal)
[2021-01-19 23:31] LABS: Amphetamine Screen,Urine Negative ng/mL (Cutoff=1000); Barbiturate Screen,Urine Negative ng/mL (Cutoff=200); Benzodiazepines Screen,Urine Negative ng/mL (Cutoff=200); Cannabinoid Screen,Urine Negative ng/mL (Cutoff = 50); Cocaine Screen,Urine Negative ng/mL (Cutoff= 300); Opiate Screen,Urine Negative ng/mL (Cutoff=300); Phencyclidine Screen,Urine Negative ng/mL (Cutoff=25)
[2021-01-19] MEDS ORDERED: Naloxone 0.4 MG/ML INJ IVP PRN (23:56)
[2021-01-19] MEDS ORDERED: Ondansetron ODT 4 MG TAB.RAPDIS SL PRN (23:56)
[2021-01-19] MEDS ORDERED: Acetaminophen 325 MG TABLET PO PRN (23:56)
[2021-01-19] MEDS ORDERED: Perflutren Lipid Microsphere 1.3 ML in 0.9 % Sodium Chloride 8.7 ML IVP PRN (23:58)
[2021-01-20] MEDS: Heparin 25,000UNIT/250ML 1/2NS 25,000 UNIT/250 ML IV.SOLN IVC SCH (00:54)
[2021-01-20] MEDS ORDERED: Ipratropium/Albuterol Neb 3 ML IH PRN (04:02)
[2021-01-20] MEDS ORDERED: *HR* Metoprolol 5 MG/5 ML VIAL IVP PRN (04:20)
[2021-01-20] MEDS: DilTIAZem 50 MG/50 ML IV.SOLN IVC SCH (04:32)
[2021-01-20] MEDS: Nicotine 14 MG PATCH.TD24 TD SCH (05:01)
[2021-01-20 05:45] LABS: Basophils # 0.1 K/mcL (0.0-0.2); Basophils % 0.5 %; Eosinophils # 0.1 K/mcL (0.0-0.6); Eosinophils % 1.1 %; Hematocrit 40.6 % (37.5-50.1); Hemoglobin 13.1 g/dL (12.9-16.9); Immature Granulocytes % 0.3 % (0-4); Lymphocytes # 6.9 K/mcL (0.6-4.6); Lymphocytes % 52.7 %; Mean Corpuscular HGB Conc 32.3 g/dL (31.6-35.5); Mean Corpuscular Hemoglobin 31.5 pg (28.0-33.3); Mean Corpuscular Volume 97.6 fL (83.0-100.0); Mean Platelet Volume 11.3 fL (9.4-12.4); Monocytes # 1.3 K/mcL (0.0-1.3); Monocytes % 9.9 %; Neutrophils # 4.6 K/mcL (1.6-8.9); Platelet Count 231 K/mcL (140-400); Red Blood Count 4.16 M/mcL (4.19-5.50); Red Cell Distribution Width 14.6 % (11.5-14.5); Segmented Neutrophils % 35.5 %
[2021-01-20 05:48] LABS: Platelet Estimate Normal (Normal)
[2021-01-20 05:49] LABS: Reactive Lymphocytes Present (Not Present)
[2021-01-20 05:57] LABS: Estimated Average Glucose 131 mg/dl; Hemoglobin A1C 6.2 %
[2021-01-20 06:07] LABS: Alanine Aminotransferase 24 Units/L (7-52); Albumin 3.3 g/dL (3.5-5.7); Albumin/Globulin Ratio 1.2 (1.1-2.2); Alkaline Phosphatase 64 Units/L (34-104); Aspartate Amino Transferase 16 Units/L (13-39); BUN/Creatinine Ratio 18 (6-26); Bilirubin,Total 0.4 mg/dL (0.3-1.0); Blood Urea Nitrogen 18 mg/dL (6-20); Calcium 8.7 mg/dL (8.6-10.3); Carbon Dioxide 26 mEq/L (23-29); Chloride 106 mEq/L (98-107); Chol/HDL Ratio 3.2 (0-4.9); Cholesterol 137 mg/dL (< 200); Globulin 2.7 g/dL (2.4-3.5); Glucose 107 mg/dL (70-105); HDL Cholesterol 43 mg/dL (40-59); LDL Cholesterol,Calculated 73 mg/dL (< 100); Magnesium 1.8 mg/dL (1.6-2.6); Osmolality,Calculated 292 (280-300); Potassium 3.7 mEq/L (3.5-5.1); Sodium 140 mEq/L (136-145); Triglycerides 103 mg/dL (< 150); Troponin I < 0.03 ng/mL (< 0.04); eGFR For African Americans > 60 (> 60); eGFR For Non-African Americans > 60 (> 60)
[2021-01-20 06:20] LABS: Thyroid Stimulating Hormone 3.481 mcIU/mL (0.340-5.600)
[2021-01-20] MEDS ORDERED: 0.9 % Sodium Chloride 500 ML IVC ONE (06:27)
[2021-01-20] MEDS ORDERED: 0.9 % Sodium Chloride 1,000 ML ONE (06:30)
[2021-01-20] MEDS ORDERED: *HR* HYDROmorphone (PF) 1 MG/ML SYRINGE IVP ONE (07:50)
[2021-01-20] MEDS ORDERED: Potassium Chloride Elixir 20 MEQ/15 ML UDC PO ONE (07:57)
[2021-01-20] MEDS: DilTIAZem CD (24hr) 180 MG CAP.ER.24H PO SCH (08:27)
[2021-01-20] MEDS: Nicotine 2 MG GUM BC PRN ×5 (09:38→23:26)
[2021-01-20] MEDS ORDERED: 0.9 % Sodium Chloride 500 ML IV ONE (10:07)
[2021-01-20] MEDS ORDERED: *HR* Metoprolol 5 MG/5 ML VIAL IVP ONE (10:07)
[2021-01-20] MEDS: Metoprolol XL (24 HR) Succ 25 MG TAB.ER.24H PO SCH (20:02)
[2021-01-20] MEDS: QUEtiapine Fumarate 100 MG TABLET PO SCH (21:07)
[2021-01-21] MEDS: Nicotine 2 MG GUM BC PRN ×6 (03:04→21:22)
[2021-01-21] MEDS: Heparin 25,000UNIT/250ML 1/2NS 25,000 UNIT/250 ML IV.SOLN IVC SCH (04:44)
[2021-01-21] MEDS: Nicotine 14 MG PATCH.TD24 TD SCH (04:50)
[2021-01-21 05:14] LABS: Basophils # 0.1 K/mcL (0.0-0.2); Basophils % 0.7 %; Eosinophils # 0.2 K/mcL (0.0-0.6); Eosinophils % 1.4 %; Hematocrit 41.8 % (37.5-50.1); Hemoglobin 13.3 g/dL (12.9-16.9); Immature Granulocytes % 0.3 % (0-4); Lymphocytes # 6.2 K/mcL (0.6-4.6); Mean Corpuscular HGB Conc 31.8 g/dL (31.6-35.5); Mean Corpuscular Hemoglobin 31.5 pg (28.0-33.3); Mean Corpuscular Volume 99.1 fL (83.0-100.0); Mean Platelet Volume 11.3 fL (9.4-12.4); Monocytes # 1.3 K/mcL (0.0-1.3); Monocytes % 11.1 %; Neutrophils # 4.1 K/mcL (1.6-8.9); Platelet Count 233 K/mcL (140-400); Red Blood Count 4.22 M/mcL (4.19-5.50); Red Cell Distribution Width 14.8 % (11.5-14.5); Segmented Neutrophils % 34.5 %; White Blood Count 11.9 K/mcL (4.3-11.1)
[2021-01-21 05:16] LABS: Platelet Estimate Normal (Normal); Reactive Lymphocytes Present (Not Present)
[2021-01-21 05:31] LABS: BUN/Creatinine Ratio 14 (6-26); Blood Urea Nitrogen 16 mg/dL (6-20); Calcium 9.4 mg/dL (8.6-10.3); Carbon Dioxide 27 mEq/L (23-29); Chloride 107 mEq/L (98-107); Glucose 123 mg/dL (70-105); Magnesium 2.1 mg/dL (1.6-2.6); Osmolality,Calculated 295 (280-300); Potassium 3.8 mEq/L (3.5-5.1); Sodium 141 mEq/L (136-145); eGFR For African Americans > 60 (> 60); eGFR For Non-African Americans > 60 (> 60)
[2021-01-21] MEDS: DilTIAZem CD (24hr) 180 MG CAP.ER.24H PO SCH (07:54)
[2021-01-21] MEDS: Metoprolol XL (24 HR) Succ 25 MG TAB.ER.24H PO SCH ×2 (07:54→20:17)
[2021-01-21] MEDS: Apixaban 5 MG TABLET PO SCH ×2 (08:05→20:18)
[2021-01-21] MEDS: QUEtiapine Fumarate 100 MG TABLET PO SCH (20:17)
[2021-01-22] MEDS: Nicotine 14 MG PATCH.TD24 TD SCH (04:27)
[2021-01-22] MEDS: Metoprolol XL (24 HR) Succ 25 MG TAB.ER.24H PO SCH (08:52)
[2021-01-22] MEDS: DilTIAZem CD (24hr) 180 MG CAP.ER.24H PO SCH (08:52)
[2021-01-22] MEDS: Apixaban 5 MG TABLET PO SCH (08:52)
[2021-01-22] MEDS: Nicotine 2 MG GUM BC PRN ×3 (09:18→17:25)
[2021-01-22 17:14] LABS: Adenovirus Not Detected (Not Detect); Coronavirus 229E Not Detected (Not Detect); Coronavirus HKU1 Not Detected (Not Detect); Coronavirus NL63 Not Detected (Not Detect); Coronavirus OC43 Not Detected (Not Detect); Human Metapneumovirus Not Detected (Not Detect); Human Rhinovirus/Enterovirus Not Detected (Not Detect); SARS-CoV-2 Not Detected (Not Detect)
[2021-01-22 17:15] LABS: Bordetella Pertussis Not Detected (Not Detect); Chlamydophila pneumoniae Not Detected (Not Detect); Influenza A Subtype 2009 H1 Not Detected (Not Detect); Influenza B Not Detected (Not Detect); Mycoplasma pneumoniae Not Detected (Not Detect); Parainfluenza Virus 1 Not Detected (Not Detect); Parainfluenza Virus 2 Not Detected (Not Detect); Parainfluenza Virus 3 Not Detected (Not Detect); Parainfluenza Virus 4 Not Detected (Not Detect); Respiratory Syncytial Virus Not Detected (Not Detect)
[2021-01-22 19:23] VITALS: BP 124/82; PULSE 73; TEMP 98.2; O2SAT 97
== END 2021-01-22 19:35 | disposition home or self-care (01) ==
LOC: EMEROOARM 21:31 → 2ANU 21:31
PROVIDERS: ADMIT Student in an Organized Health Care Education/Training Program; ATTEND Student in an Organized Health Care Education/Training Program